=== PATIENT | female | born 1935 | race Caucasian/White ===

== ENCOUNTER → 2017-12-20 | Outpatient (CLI) | payer OTHER | END | disposition home or self-care (01) | LOC: C.LABMFLN 10:59 | PROVIDERS: ATTEND Family Medicine | DX: R30.0 Dysuria (principal) ==

== ENCOUNTER → 2018-01-01 | Outpatient (CLI) | payer OTHER | END | disposition home or self-care (01) | LOC: C.LABMFLN 09:56 | PROVIDERS: ATTEND Family Medicine | DX: N30.00 Acute cystitis without hematuria (principal) ==

== ENCOUNTER 2019-10-20 17:26 | Observation (INO) ==
[2019-10-20] MEDS ORDERED: SODIUM CHLORIDE 0.9% 500 ML IV ONE (17:48)
--- NOTE | 2019-10-20 18:15 | Emergency Department Note ---
Entered by Gregorio Diaz acting as a scribe for Kei Mejia MD History of Present Illness General Chief complaint: Urinary Symptoms Stated complaint: UTI Time Seen by Provider: 10/20/19 17:38 Source: patient and family (daughter) Limitations: no limitations History of Present Illness Onset (ago): day(s) (couple days) Location: head Severity: similar to prior episodes Pain Consistency: + constant Quality: + constant Associated symptoms: + other (not keeping up with fluids, multiple falls); no confusion and no nausea/vomiting Treatments prior to arrival: other (bactrim) The patient is a 84 year old female who presents to the Emergency Room with complaints of constant weakness starting a few days ago. The patient's daughter states the patient's PCP, Dr. Saavedra, told them to go to the ED yesterday because her symptoms sounded like she had a UTI. The daughter states the patient was diagnosed with a UTI yesterday and was put on Bactrim. The daughter states the patient's gait is off and she fell 3 times today. The daughter states the patient has a lump on her back. The daughter states the patient did not hit her head. The daughter states the patient takes Eliquis. The patient denies having nausea and vomiting. The daughter denies the patient having confusion. The daughter states the patient has a history of aspiration. The daughter states the patient has not been keeping up with her fluids. The daughter states the patient needs assistance at home with dressing and bathing. Home Medications Home Medications Medication Instructions Recorded Confirmed Type apixaban 2.5 mg tablet 2.5 mg PO BID #180 tab 03/26/19 10/20/19 Rx calcium carbonate 600 mg (1,500 1 cap PO DAILY #90 cap 04/08/19 10/20/19 Rx mg)-vitamin D3 500 unit capsule cholecalciferol (vitamin D3) 50 2,000 units PO DAILY #90 tab 04/08/19 10/20/19 Rx mcg (2,000 unit) tablet cyanocobalamin (vitamin B-12) 1,000 mcg PO DAILY #90 tab 04/08/19 10/20/19 Rx 1,000 mcg tablet metoprolol tartrate 25 mg tablet 12.5 mg PO BID #90 tab 04/08/19 10/20/19 Rx cranberry 500 mg PO DAILY 10/20/19 10/20/19 History lisinopril 5 mg PO DAILY 10/20/19 10/20/19 History sulfamethoxazole-trimethoprim 1 tab PO BID 10/20/19 10/20/19 History [Bactrim DS] tramadol-acetaminophen 2 tab PO BID PRN 10/20/19 10/20/19 History Allergies Allergy/AdvReac Type Severity Reaction Status Date / Time antivenin,crotalidae Allergy Severe TONGUE Verified 10/20/19 18:02 polyvalent imm SWELLS aspirin Allergy Unknown CAN'T Verified 10/20/19 18:02 REMEMBER atorvastatin Allergy Unknown CAN'T Verified 10/20/19 18:02 REMEMBER ciprofloxacin [From Cipro] Allergy Unknown CAN'T Verified 10/20/19 18:02 REMEMBER ibandronate sodium Allergy Unknown CAN'T Verified 10/20/19 18:02 REMEMBER Sulfa (Sulfonamide Allergy Unknown CAN'T Verified 10/20/19 18:02 Antibiotics) REMEMBER Past Med/Surg History Medical History Cataract Chronic anticoagulation (Chronic) 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) Gait instability (Chronic) HTN, goal below 150/90 (Chronic) Insomnia (Chronic) Medicare annual wellness visit, initial (Acute) Osteoporosis (Chronic) Pulmonary embolism (Resolved) Recurrent falls (Chronic) Urge and stress incontinence (Suspected) UTI due to extended-spectrum beta lactamase (ESBL) producing Escherichia coli (Acute) Vitamin D deficiency (Chronic) Family History Mother Colorectal cancer Father Heart disease Stroke Hypertension Grandmother (Maternal) Diabetes Social History Preferred Language: Mongolian Communication Ability: Effective Visual Impairment: Diminished Hearing Ability: Normal Beliefs That Will Affect Care: Episcopal marital status: / marital status details: 2015 Current Living Situation: Other Current Living Situation Comment: lives with her daughter current occupational status: retired current occupation: seamstress Feels Safe at Home: Yes Smoking Status: Never smoker Hx Alcohol Use: No caffeine: Yes during the past year weight has: remained stable Dental Care, Regularly: Yes Physical Activity Frequency: 5-6 Times per Week Physical Activity Frequency Comment: With daughter core strengthening Seatbelt Use: always Sunscreen Use: No Review of Systems See HPI for pertinent positives & negatives. and A total of 10 systems reviewed and were otherwise negative Physical Exam Vital Signs Vital Signs - 24 hr 10/20/19 17:29 10/20/19 18:16 10/20/19 19:23 Temperature 36.5 C Temperature Source Oral Pulse Rate 63 58 L Pulse Rate [Apical] 60 Pulse Rate from SpO2 Sensor 58 L Respiratory Rate 20 20 18 Respiratory Effort / Characteristics Non-Labored Spontaneous Respiratory Depth Normal Blood Pressure 167/89 H 179/100 H Blood Pressure [Left Arm] 176/83 H Blood Pressure Mean 115 114 Blood Pressure Mean [Left Arm] 114 Pulse Oximetry 93 94 95 Oxygen Delivery Method Room Air Room Air Sepsis Recent Fever Within 48 Hours No Sepsis Action Taken by Nursing No Action Required 10/20/19 19:31 10/20/19 20:31 10/20/19 21:01 Temperature Temperature Source Pulse Rate 58 L 58 L 59 L Pulse Rate [Apical] Pulse Rate from SpO2 Sensor 58 L 58 L Respiratory Rate 21 21 20 Respiratory Effort / Characteristics Respiratory Depth Blood Pressure 199/74 H 175/79 H 185/85 H Blood Pressure [Left Arm] Blood Pressure Mean 139 123 115 Blood Pressure Mean [Left Arm] Pulse Oximetry 96 93 Oxygen Delivery Method Sepsis Recent Fever Within 48 Hours Sepsis Action Taken by Nursing 10/20/19 21:31 10/20/19 22:01 Temperature Temperature Source Pulse Rate 61 61 Pulse Rate [Apical] Pulse Rate from SpO2 Sensor Respiratory Rate 20 20 Respiratory Effort / Characteristics Respiratory Depth Blood Pressure 196/91 H 180/82 H Blood Pressure [Left Arm] Blood Pressure Mean 104 115 Blood Pressure Mean [Left Arm] Pulse Oximetry Oxygen Delivery Method Sepsis Recent Fever Within 48 Hours Sepsis Action Taken by Nursing General: Non-ill appearing older female in no acute distress. HEENT: Normal cephalic atraumatic. Pupils are equal round and reactive to light. Extraocular movements are intact. Oropharynx is pink with moist mucous membranes. No swelling of the mouth lips or tongue. Neck: Supple with a midline trachea. No meningeal signs or stiffness, no JVD or bruits. No Stridor. Chest: Clear to auscultation bilaterally. No wheezes or rhonchi. No increased work of breathing. Heart: regular rate and rhythm. Abdomen: Soft nontender, nondistended without rebound guarding or rigidity. Extremities: No cyanosis clubbing or edema. No calf tenderness or asymmetry Spine/Back. Non tender to palpation. No CVA tenderness. Moderate hematoma in the lower sacral area with a small abrasion. No active bleeding. Skin: Good turgor without rashes. Neurologic exam: Cranial nerves two through 12 are intact. Motor and sensation are intact and symmetrical throughout. Course Course 1737: The patient was evaluated in room C1B, and a complete history and physical examination were performed. 1825: I reevaluated the patient. She is finishing up her blood work. 1914: The patient is getting a catheter. 2023: I updated the patient on her labs and imaging. I recommended hospitalization, and she agrees with the plan. 2043: I discussed the patient's case with Dr. Ruiz - [facility]. He will evaluate the patient for further management. Administered Medications Discontinued Medications Sodium Chloride (Nss) 500 mls @ 999 mls/hr IV .Q31M ONE Stop: 10/20/19 18:18 Last Infusion: 10/20/19 19:37 Dose: 0 mls/hr Documented by: [id number] Admin: 10/20/19 18:18 Dose: 999 mls/hr Documented by: [id number] Ertapenem (Invanz) 10 mls @ 2 mls/min IV NOW STA Stop: 10/20/19 20:57 Last Admin: 10/20/19 21:46 Dose: 2 mls/min Documented by: [id number] Medical Decision Making Differential Diagnosis Differential Diagnosis includes but is not limited to weakness, sepsis, UTI, trauma, and electrolyte or metabolic abnormality. Medical Records Attestation: I reviewed the patient's medical records. Home Medications Current Medication List: was personally reviewed by me Laboratory Data Attestation: I reviewed the patient's lab results. Result diagrams: 10/20/19 18:01 10/20/19 18:01 Lab Results 10/20/19 10/20/19 10/20/19 Range/Units 18:01 18: 18: WBC 7.97 (4.8-10.8) K/uL RBC 4.56 (4.2-5.4) M/uL Hgb 13.6 (12.0-16.0) g/dL Hct 41.0 (37-47) % MCV 89.9 (80-100) fL MCH 29.8 (25-34) pg MCHC 33.2 (32-36) g/dL RDW Std Deviation 45.1 (36.4-46.3) fL RDW Coeff of Marimar 13.8 (11.5-14.5) % Plt Count 249 (130-400) K/uL MPV 9.3 (7.4-10.4) fL Immature Gran % (Auto) 0.3 % Neut % (Auto) 59.4 % Lymph % (Auto) 33.2 % [place] % (Auto) 5.9 % Eos % (Auto) 1.1 % Baso % (Auto) 0.1 % Immature Gran # (Auto) 0.02 (0.00-0.02) K/uL Neut # (Auto) 4.73 (1.4-6.5) K/uL Lymph # (Auto) 2.65 (1.2-3.4) K/uL [place] # (Auto) 0.47 (0.11-0.59) K/uL Eos # (Auto) 0.09 (0-0.5) K/uL Baso # (Auto) 0.01 (0-0.2) K/uL PT 11.1 (9.0-12.0) Seconds INR 1.1 (0.9-1.1) APTT 28.2 (21.0-31.0) Seconds PTT Ratio 1.0 Sodium 138 (136-145) mmol/L Potassium 4.4 (3.5-5.1) mmol/L Chloride 105 (98-107) mmol/L Carbon Dioxide 27 (21-32) mmol/L Anion Gap 6.0 (3-11) BUN 18 (7-18) mg/dl Creatinine 1.03 (0.6-1.2) mg/dl Est Cr Clr Drug Dosing Not Reportable Est GFR ( Amer) 57.8 Est GFR (Non-Af Amer) 49.9 BUN/Creatinine Ratio 17.8 (10-20) Glucose 100 H (70-99) mg/dl Lactate (0.4-2.0) mmol/L Calcium 9.2 (8.5-10.1) mg/dl Magnesium 2.3 (1.8-2.4) mg/dl Total Bilirubin 0.3 (0.2-1) mg/dl AST 12 L (15-37) U/L ALT 13 (12-78) U/L Alkaline Phosphatase 80 (45-117) U/L Total Protein 7.7 (6.4-8.2) gm/dl Albumin 3.7 (3.4-5.0) gm/dl Globulin 4.0 (2.5-4.0) gm/dl Albumin/Globulin Ratio 0.9 (0.9-2) Urine Color Urine Appearance (Clear) Urine pH (4.5-7.5) Ur Specific Brenham (1.000-1.030) Urine Protein (Negative) Urine Glucose (UA) (Negative) Urine Ketones (Negative) Urine Blood (Negative) Urine Nitrite (Negative) Urine Bilirubin (Negative) Urine Urobilinogen (Negative) Ur Leukocyte Esterase (Negative) 10/20/19 10/20/19 Range/Units 18:01 19:21 WBC (4.8-10.8) K/uL RBC (4.2-5.4) M/uL Hgb (12.0-16.0) g/dL Hct (37-47) % MCV (80-100) fL MCH (25-34) pg MCHC (32-36) g/dL RDW Std Deviation (36.4-46.3) fL RDW Coeff of Marimar (11.5-14.5) % Plt Count (130-400) K/uL MPV (7.4-10.4) fL Immature Gran % (Auto) % Neut % (Auto) % Lymph % (Auto) % [place] % (Auto) % Eos % (Auto) % Baso % (Auto) % Immature Gran # (Auto) (0.00-0.02) K/uL Neut # (Auto) (1.4-6.5) K/uL Lymph # (Auto) (1.2-3.4) K/uL [place] # (Auto) (0.11-0.59) K/uL Eos # (Auto) (0-0.5) K/uL Baso # (Auto) (0-0.2) K/uL PT (9.0-12.0) Seconds INR (0.9-1.1) APTT (21.0-31.0) Seconds PTT Ratio Sodium (136-145) mmol/L Potassium (3.5-5.1) mmol/L Chloride (98-107) mmol/L Carbon Dioxide (21-32) mmol/L Anion Gap (3-11) BUN (7-18) mg/dl Creatinine (0.6-1.2) mg/dl Est Cr Clr Drug Dosing Est GFR ( Amer) Est GFR (Non-Af Amer) BUN/Creatinine Ratio (10-20) Glucose (70-99) mg/dl Lactate 2.0 (0.4-2.0) mmol/L Calcium (8.5-10.1) mg/dl Magnesium (1.8-2.4) mg/dl Total Bilirubin (0.2-1) mg/dl AST (15-37) U/L ALT (12-78) U/L Alkaline Phosphatase (45-117) U/L Total Protein (6.4-8.2) gm/dl Albumin (3.4-5.0) gm/dl Globulin (2.5-4.0) gm/dl Albumin/Globulin Ratio (0.9-2) Urine Color Yellow Urine Appearance Clear (Clear) Urine pH 6.5 (4.5-7.5) Ur Specific Brenham 1.015 (1.000-1.030) Urine Protein Negative (Negative) Urine Glucose (UA) Negative (Negative) Urine Ketones Negative (Negative) Urine Blood Negative (Negative) Urine Nitrite Negative (Negative) Urine Bilirubin Negative (Negative) Urine Urobilinogen Negative (Negative) Ur Leukocyte Esterase Negative (Negative) Imaging Data Radiologist's Impression: Radiology results as stated below per my review and the radiologist's interpretation: XR chest 1V portable HISTORY: SEPSIS COMPARISON: Chest 09/10/2019. FINDINGS: The lungs are clear. Cardiac silhouette is normal in size. No pleural effusions. No pneumothorax. IMPRESSION: No acute process. ACT 112: Negative or not required by law. Electronically signed by: Wayne Torres M.D. 10/20/2019 7:58 PM [address] AND PELVIS CT WITHOUT CONTRAST CT DOSE: 1166.72 mGy.cm HISTORY: fall, sacral injury on Eliquis TECHNIQUE: Multiaxial CT images of the abdomen and pelvis were performed without contrast. A dose lowering technique was utilized adhering to the principles of ALARA. COMPARISON STUDY: None. FINDINGS: A few bibasilar linear densities consistent with subsegmental atelectasis. There are calcified granuloma seen within the left lower lobe. No pneumoperitoneum. No pneumatosis. A few scattered punctate calcified granuloma seen within the liver and spleen. The unenhanced gallbladder, pancreas, adrenal glands, and kidneys are unremarkable. Presacral soft tissues are intact. Subcutaneous hematoma posterior to the sacrum. This measures 7.6 cm in length and 3.2 x 1.4 cm in thickness. Calcified plaque within the normal caliber abdominal aorta. Punctate focus of gas within the bladder lumen. There is mild bladder wall thickening. The bilateral adnexa are unremarkable. 1 cm calcification at the uterine fundus favors a fibroid. Colonic diverticulosis. No evidence for diverticulitis. No bowel wall thickening or obstruction. IMPRESSION: A A 7.6 x 3.2 x 1.4 cm subcutaneous hematoma posterior to the sacrum. 2. No sacral fractures identified. 3. Mild bladder wall thickening containing a punctate focus of gas. This could be due to recent catheterization or possibly a cystitis. ACT 112: Negative or not required by law. Electronically signed by: Wayne Torres M.D. 10/20/2019 7:[address] CT DOSE: HISTORY: fall, weakness TECHNIQUE: Multiaxial CT images of the head were performed without the use of intravenous contrast. Automated exposure control was utilized for this study. A dose lowering technique was utilized adhering to the principles of ALARA. Comparison: None. Findings: The paranasal sinuses and mastoid air cells are clear. The calvarium and skull base are intact. There is no mass, hematoma, midline shift, acute infarct. White matter hypodensity is nonspecific but suggestive of microvascular ischemic change. The ventricles and sulci demonstrate mild age-related involutional changes. 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 Impression: No acute intracranial abnormality. ACT 112: Negative or not required by law. Electronically signed by: Wayne Torres M.D. 10/20/2019 7:42 PM ECG Data Attestation: I personally reviewed and interpreted this ECG as follows: Indication: + weakness Rate (beats per minute): 57 Rhythm: + sinus bradycardia ECG Intervals/blocks: + Normal QT ECG ST segments: no ST depression and no ST elevation Comparison ECG Date: no prior available Blood Pressure Blood Pressure Findings: Elevated blood pressure Blood Pressure Disposition: further management by hospitalist MDM Narrative This patient comes in as described above. She was placed in room C1. She is brought in by her daughter after she has had frequent falls. She landed on her buttocks and has a hematoma there. She is on Eliquis. She did not think she hit her head. She was seen in [place] yesterday and started on Bactrim apparently for a UTI. I did look at her records from yesterday and her prelim urine culture from a cath specimen shows greater than 100,000 and gram-negative rods that are non-Lactose fermenting. She also had greater than 1000 gram- positive cocci. According to the [place] ED note, she had a culture done back in December which had E. coli which showed sensitivity to Macrobid and Bactrim. When I look at her cultures here, the last 2 urine cultures were ESBL with multiple resistances. Given her symptoms, I did do a full sepsis work-up as well as a did a CAT scan of her head and abdomen/pelvis for trauma and weakness. She was ordered an IV fluid bolus. She was reassessed frequently. Cultures were obtained of the blood and urine. CAT scan of her head was negative. CAT scan of her pelvis shows a sacral hematoma without fracture. She has no significant white count or fever and does not have an elevated lactic acid however she is weak and has a documented UTI from yesterday with a history of ESBL. I did discuss case Dr. Sahni and ordered ertapenem 1 g IV which covered her last couple cultures here with ESBL. She will be admitted/observed for further elbert atment and evaluation. Impression & Plan Weakness, Frequent falls, UTI (urinary tract infection), prison (current) use of anticoagulants, Contusion of sacrum Discharge Plan Visit Data Chief Complaint: Urinary Symptoms Stated Complaint: UTI ED Provider: Kei Mejia Discharge Problem: Weakness, Frequent falls, UTI (urinary tract infection), intermediate teacher (current) use of anticoagulants, Contusion of sacrum Patient Disposition: Being Evaluated by Hospitalist Discharge Instructions Interventions: ED Discharge Assessment Last Done: 10/20/19 22:16 Forms Stand Alone Forms: [facility] [employer] Prescriptions Prescriptions: No Action Eliquis 2.5 mg tablet 2.5 mg PO BID Qty: 180 RF: 3 calcium carbonate-vitamin D3 [Calcium 600 with Vitamin D3] 600 mg(1,500mg) - 500 unit capsule 1 cap PO DAILY Qty: 90 RF: 3 cholecalciferol (vitamin D3) 2,000 unit tablet 2,000 units PO DAILY Qty: 90 RF: 3 cyanocobalamin (vitamin B-12) 1,000 mcg tablet 1,000 mcg PO DAILY Qty: 90 RF: 3 metoprolol tartrate 25 mg tablet 12.5 mg PO BID Qty: 90 RF: 3 sulfamethoxazole-trimethoprim [Bactrim DS] 800-160 mg Tablet 1 tab PO BID RF: 0 cranberry 500 mg Capsule 500 mg PO DAILY RF: 0 tramadol-acetaminophen 37.5-325 mg tablet 2 tab PO BID PRN (Reason: Pain) RF: 0 lisinopril 5 mg tablet 5 mg PO DAILY RF: 0 Referrals Referrals: Red Saavedra MD [Primary Care Provider] - Discharge Problem: UTI (urinary tract infection) Qualifiers: Urinary tract infection type: site unspecified Hematuria presence: without hematuria Qualified Code(s): N39.0 - Urinary tract infection, site not specified Contusion of sacrum Qualifiers: Encounter type: initial encounter Qualified Code(s): S30.0XXA - Contusion of lower back and pelvis, initial encounter The scribe's documentation has been prepared under my direction and personally reviewed by me in its entirety. I confirm that the note above accurately reflects all work, treatment, procedures, and medical decision making performed by me.
[2019-10-20 18:24] LABS: Basophils # (auto) 0.01 K/uL (0-0.2); Basophils % (auto) 0.1 %; Eosinophils # (auto) 0.09 K/uL (0-0.5); Eosinophils % (auto) 1.1 %; Hemoglobin 13.6 g/dL (12.0-16.0); Immature Granulocytes # (auto) 0.02 K/uL (0.00-0.02); Immature Granulocytes % (auto) 0.3 %; Lymphocytes # (auto) 2.65 K/uL (1.2-3.4); Lymphocytes % (auto) 33.2 %; Mean Corpuscular Hemoglobin 29.8 pg (25-34); Mean Corpuscular Hgb Conc 33.2 g/dL (32-36); Mean Corpuscular Volume 89.9 fL (80-100); Mean Platelet Volume 9.3 fL (7.4-10.4); Monocytes # (auto) 0.47 K/uL (0.11-0.59); Monocytes % (auto) 5.9 %; Neutrophils # (auto) 4.73 K/uL (1.4-6.5); Neutrophils % (auto) 59.4 %; Platelet Count 249 K/uL (130-400); RDW Coefficient of Variation 13.8 % (11.5-14.5); RDW Standard Deviation 45.1 fL (36.4-46.3); Red Blood Count 4.56 M/uL (4.2-5.4); White Blood Count 7.97 K/uL (4.8-10.8)
[2019-10-20 18:36] LABS: INR 1.1 (0.9-1.1); Partial Thromboplastin Time 28.2 Seconds (21.0-31.0); Prothrombin Time 11.1 Seconds (9.0-12.0)
[2019-10-20 18:41] LABS: Alanine Aminotransferase 13 U/L (12-78); Albumin Level 3.7 gm/dl (3.4-5.0); Aspartate Aminotransferase 12 U/L (15-37); BUN Creatinine Ratio 17.8 (10-20); Blood Urea Nitrogen 18 mg/dl (7-18); Calcium 9.2 mg/dl (8.5-10.1); Carbon Dioxide 27 mmol/L (21-32); Chloride 105 mmol/L (98-107); Est GFR (African American) 57.8; Est GFR (Non-African American) 49.9; Glucose 100 mg/dl (70-99); Magnesium 2.3 mg/dl (1.8-2.4); Potassium 4.4 mmol/L (3.5-5.1); Sodium 138 mmol/L (136-145)
[2019-10-20 18:44] LABS: Albumin Globulin Ratio 0.9 (0.9-2); Alkaline Phosphatase 80 U/L (45-117); Bilirubin,Total 0.3 mg/dl (0.2-1); Total Protein 7.7 gm/dl (6.4-8.2)
--- NOTE | 2019-10-20 19:31 | CT Scan Report ---
ABDOMEN AND PELVIS CT WITHOUT CONTRAST CT DOSE: 1166.72 mGy.cm HISTORY: fall, sacral injury on Eliquis TECHNIQUE: Multiaxial CT images of the abdomen and pelvis were performed without contrast. A dose lo wering technique was utilized adhering to the principles of ALARA. COMPARISON STUDY: None. FINDINGS: A few bibasilar linear densities consistent with subsegmental atelectasis. There are calcif ied granuloma seen within the left lower lobe. No pneumoperitoneum. No pneumatosis. A few scattered p unctate calcified granuloma seen within the liver and spleen. The unenhanced gallbladder, pancreas, a drenal glands, and kidneys are unremarkable. Presacral soft tissues are intact. Subcutaneous hematoma posterior to the sacrum. This measures 7.6 cm in length and 3.2 x 1.4 cm in thickness. Calcified rossi que within the normal caliber abdominal aorta. Punctate focus of gas within the bladder lumen. There is mild bladder wall thickening. The bilateral adnexa are unremarkable. 1 cm calcification at the chitimacha rine fundus favors a fibroid. Colonic diverticulosis. No evidence for diverticulitis. No bowel wall t hickening or obstruction. IMPRESSION: A A 7.6 x 3.2 x 1.4 cm subcutaneous hematoma posterior to the sacrum. 2. No sacral fractures identified. 3. Mild bladder wall thickening containing a punctate focus of gas. This could be due to recent gregg terization or possibly a cystitis. ACT 112: Negative or not required by law. Electronically signed by: Wayne Torres M.D. 10/20/2019 7:29 PM
[2019-10-20 19:32] LABS: Appearance Urine Clear (Clear); Bilirubin Urine Negative (Negative); Blood Urine Negative (Negative); Color Urine Yellow; Glucose Urine UA Negative (Negative); Ketones Urine Negative (Negative); Leukocyte Esterase Urine Negative (Negative); Nitrite Urine Negative (Negative); Protein Urine Negative (Negative); Specific Gravity Urine 1.015 (1.000-1.030); Urobilinogen Urine Negative (Negative); pH Urine 6.5 (4.5-7.5)
--- NOTE | 2019-10-20 19:44 | CT Scan Report ---
HEAD CT NONCONTRAST CT DOSE: HISTORY: fall, weakness TECHNIQUE: Multiaxial CT images of the head were performed without the use of intravenous contrast. A utomated exposure control was utilized for this study. A dose lowering technique was utilized adheri ng to the principles of ALARA. Comparison: None. Findings: The paranasal sinuses and mastoid air cells are clear. The calvarium and skull base are int act. There is no mass, hematoma, midline shift, acute infarct. White matter hypodensity is nonspecifi c but suggestive of microvascular ischemic change. The ventricles and sulci demonstrate mild age-rela selam involutional changes. 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 Impression: No acute intracranial abnormality. ACT 112: Negative or not required by law. Electronically signed by: Wayne Torres M.D. 10/20/2019 7:42 PM
--- NOTE | 2019-10-20 19:59 | XRay Report ---
XR chest 1V portable HISTORY: SEPSIS COMPARISON: Chest 09/10/2019. FINDINGS: The lungs are clear. Cardiac silhouette is normal in size. No pleural effusions. No pneumot horax. IMPRESSION: No acute process. ACT 112: Negative or not required by law. Electronically signed by: Wayne Torres M.D. 10/20/2019 7:58 PM
[2019-10-20] MEDS ORDERED: ERTAPENEM SODIUM 10 ML IV STA (20:53)
--- NOTE | 2019-10-20 22:15 | History & Physical Report ---
Date of Service October 20, 2019 Assessment & Plan (1) Weakness: Progressive weakness, gait instability and frequent falls- The patient presents to the emergency department with persistent weakness, and increased frequency of falls that occurred prior to arrival. Likely being aggravated by weakness and encephalopathy associated with urinary tract infection Patient will need to have a PT assessment prior to discharge. Present on Admission?: Yes (2) Frequent falls: See above Present on Admission?: Yes (3) Gait instability: See above Present on Admission?: Yes (4) UTI due to extended-spectrum beta lactamase (ESBL) producing Escherichia coli: Will place patient on ertapenem 1 g IV daily, to cover potential resistant organism. Follow urine culture and sensitivity. NSS at 60 mils per hour. Present on Admission?: Yes (5) Pulmonary embolism: Hold apixaban for 24 hours, due to contusion on lower back due to fall. If satisfactory tomorrow, can resume apixaban at that time. Present on Admission?: Yes (6) Contusion of sacrum: Holding apixaban for 24 hours as noted, and reassess in the a.m. 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 twice daily, and lisinopril 5 mg p.o. daily with hold parameters. Present on Admission?: Yes (9) Urge and stress incontinence: Predisposing patient to recurrent urinary tract infection Present on Admission?: Yes History of Present Illness Chief Complaint: The patient presents to the emergency department with progressive generalized weakness that began a few days ago. Primary Care Provider: Red Saavedra MD The patient is an 84-year-old female with past medical history including aspiration, femoral hernia, lumbar disc disease, first-degree AV block, gait instability, hypertension, insomnia, osteoporosis, pulmonary embolism, recurrent falls, ESBL UTI, urge and stress incontinence, and vitamin D deficiency. She presents to the emergency department with progressive generalized weakness that began a few days ago. She was seen at this emergency department yesterday after getting instructions from her PCP Dr. Saavedra to do so, and was started on Bactrim for UTI. Her daughter has brought her back to the ED tonight, due to the patient falling 3 times today, and reports a lump on her back. The patient is on Eliquis for pulmonary emboli Allergies Allergy/AdvReac Type Severity Reaction Status Date / Time antivenin,crotalidae Allergy Severe TONGUE Verified 10/20/19 18:02 polyvalent imm SWELLS aspirin Allergy Unknown CAN'T Verified 10/20/19 18:02 REMEMBER atorvastatin Allergy Unknown CAN'T Verified 10/20/19 18:02 REMEMBER ciprofloxacin [From Cipro] Allergy Unknown CAN'T Verified 10/20/19 18:02 REMEMBER ibandronate sodium Allergy Unknown CAN'T Verified 10/20/19 18:02 REMEMBER Sulfa (Sulfonamide Allergy Unknown CAN'T Verified 10/20/19 18:02 Antibiotics) REMEMBER Home Medications Home Medications Medication Instructions Recorded Confirmed Type apixaban 2.5 mg tablet 2.5 mg PO BID #180 tab 03/26/19 10/20/19 Rx calcium carbonate 600 mg (1,500 1 cap PO DAILY #90 cap 04/08/19 10/20/19 Rx mg)-vitamin D3 500 unit capsule cholecalciferol (vitamin D3) 50 2,000 units PO DAILY #90 tab 04/08/19 10/20/19 Rx mcg (2,000 unit) tablet cyanocobalamin (vitamin B-12) 1,000 mcg PO DAILY #90 tab 04/08/19 10/20/19 Rx 1,000 mcg tablet metoprolol tartrate 25 mg tablet 12.5 mg PO BID #90 tab 04/08/19 10/20/19 Rx cranberry 500 mg PO DAILY 10/20/19 10/20/19 History lisinopril 5 mg PO DAILY 10/20/19 10/20/19 History sulfamethoxazole-trimethoprim 1 tab PO BID 10/20/19 10/20/19 History [Bactrim DS] tramadol-acetaminophen 2 tab PO BID PRN 10/20/19 10/20/19 History Past Med/Surg History Medical History Cataract Chronic anticoagulation (Chronic) 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) Gait instability (Chronic) HTN, goal below 150/90 (Chronic) Insomnia (Chronic) Medicare annual wellness visit, initial (Acute) Osteoporosis (Chronic) Pulmonary embolism (Resolved) Recurrent falls (Chronic) Urge and stress incontinence (Suspected) UTI due to extended-spectrum beta lactamase (ESBL) producing Escherichia coli (Acute) Vitamin D deficiency (Chronic) Family History Mother Colorectal cancer Father Heart disease Stroke Hypertension Grandmother (Maternal) Diabetes Social History Preferred Language: Cymro Communication Ability: Impaired Communication Ability Comment: dementia Visual Impairment: Diminished Hearing Ability: Normal Community Affairs Manager Required: No Beliefs That Will Affect Care: None marital status: / marital status details: 2014 Current Living Situation: Family Current Living Situation Comment: lives with her daughter current occupational status: retired current occupation: [employer] Other Information That Helps Us Care for You: No Feels Safe at Home: Yes Safety Concerns: Feels Safe At This Time Smoking Status: Never smoker Do You Dip or Chew Tobacco: No ; Second Hand Exposure: Yes ; Tobacco Cessation Education Requested by Patient: No Hx Alcohol Use: No Hx Substance Use: No caffeine: Yes during the past year weight has: remained stable Dental Care, Regularly: Yes Physical Activity Frequency: 5-6 Times per Week Physical Activity Frequency Comment: With daughter core strengthening Seatbelt Use: always Sunscreen Use: No Review of Systems Review of Systems: Unobtainable due to cognitive status Physical Exam Physical Exam: The patient is awake, tries to answer questions but is confused, normocephalic and atraumatic, lying in bed and in no acute distress. HEENT--PERRL, EOMI, mucous membranes and oropharynx dry. Neck--supple. No JVD. No bruits. Thyroid normal, trachea midline, no adenopathy. Heart--normal S1 and S2. No murmurs, rubs or gallops. Lungs--clear bilaterally, no respiratory distress, no accessory muscle use. Abdomen--normal bowel sounds and soft. Nontender. Nondistended. Extremities--no cyanosis or clubbing. No edema. There are good distal pulses b/l. Dermatologic--normal skin turgor, normal color, no abnormal lymph nodes, no rash. Neurologic--cranial nerves II through XII grossly intact. Rheumatologic--normal range of motion. Psychiatric--normal affect. Results & Data Vital Signs (Past 12 Hours) Vital Signs Temp Pulse Pulse Resp BP BP Pulse Ox 02/23/20 20:31 58 L 21 175/79 H 93 10/20/19 19:31 58 L 21 199/74 H 96 10/20/19 19:23 58 L 18 179/100 H 95 10/20/19 18:16 60 20 176/83 H 94 10/20/19 17:29 97.7 F 63 20 167/89 H 93 Laboratory Results Laboratory Results WBC 7.97 K/uL (4.8-10.8) 10/20/19 18: RBC 4.56 M/uL (4.2-5.4) 10/20/19 18:01 Hgb 13.6 g/dL (12.0-16.0) 10/20/19 18: Hct 41.0 % (37-47) 10/20/19 18: MCV 89.9 fL (80-100) 10/20/19 18: MCH 29.8 pg (25-34) 10/20/19 18: MCHC 33.2 g/dL (32-36) 10/20/19 18: RDW Std Deviation 45.1 fL (36.4-46.3) 10/20/19 18: RDW Coeff of Marimar 13.8 % (11.5-14.5) 10/20/19 18: Plt Count 249 K/uL (130-400) 10/20/19 18:01 MPV 9.3 fL (7.4-10.4) 10/20/19 18:01 Immature Gran % (Auto) 0.3 % 10/20/19 18:01 Neut % (Auto) 59.4 % 10/20/19 18: Lymph % (Auto) 33.2 % 10/20/19 18:01 Lander % (Auto) 5.9 % 10/20/19 18:01 Eos % (Auto) 1.1 % 10/20/19 18:01 Baso % (Auto) 0.1 % 10/20/19 18:01 Immature Gran # (Auto) 0.02 K/uL (0.00-0.02) 10/20/19 18:01 Neut # (Auto) 4.73 K/uL (1.4-6.5) 10/20/19 18:01 Lymph # (Auto) 2.65 K/uL (1.2-3.4) 10/20/19 18:01 Lander # (Auto) 0.47 K/uL (0.11-0.59) 10/20/19 18: Eos # (Auto) 0.09 K/uL (0-0.5) 10/20/19 18:01 Baso # (Auto) 0.01 K/uL (0-0.2) 10/20/19 18: PT 11.1 Seconds (9.0-12.0) 10/20/19 18: INR 1.1 (0.9-1.1) 10/20/19 18: APTT 28.2 Seconds (21.0-31.0) 10/20/19 18: PTT Ratio 1.0 10/20/19 18: Sodium 138 mmol/L (136-145) 10/20/19 18: Potassium 4.4 mmol/L (3.5-5.1) 10/20/19 18: Chloride 105 mmol/L (98-107) 10/20/19 18: Carbon Dioxide 27 mmol/L (21-32) 10/20/19 18: Anion Gap 6.0 (3-11) 10/20/19 18: BUN 18 mg/dl (7-18) 10/20/19 18: Creatinine 1.03 mg/dl (0.6-1.2) 10/20/19 18: Est Cr Clr Drug Dosing Not Reportable 10/20/19 18: Est GFR ( Amer) 57.8 10/20/19 18: Est GFR (Non-Af Amer) 49.9 10/20/19 18: BUN/Creatinine Ratio 17.8 (10-20) 10/20/19 18: Glucose 100 mg/dl (70-99) H 10/20/19 18: Lactate 2.0 mmol/L (0.4-2.0) 10/20/19 18: Calcium 9.2 mg/dl (8.5-10.1) 10/20/19 18: Magnesium 2.3 mg/dl (1.8-2.4) 10/20/19 18: Total Bilirubin 0.3 mg/dl (0.2-1) 10/20/19 18: AST 12 U/L (15-37) L 10/20/19 18:01 ALT 13 U/L (12-78) 10/20/19 18:01 Alkaline Phosphatase 80 U/L (45-117) 10/20/19 18:01 Total Protein 7.7 gm/dl (6.4-8.2) 10/20/19 18:01 Albumin 3.7 gm/dl (3.4-5.0) 10/20/19 18:01 Globulin 4.0 gm/dl (2.5-4.0) 10/20/19 18:01 Albumin/Globulin Ratio 0.9 (0.9-2) 10/20/19 18:01 Urine Color Yellow 10/20/19 19:21 Urine Appearance Clear (Clear) 10/20/19 19:21 Urine pH 6.5 (4.5-7.5) 10/20/19 19:21 Ur Specific Steele 1.015 (1.000-1.030) 10/20/19 19:21 Urine Protein Negative (Negative) 10/20/19 19:21 Urine Glucose (UA) Negative (Negative) 10/20/19 19:21 Urine Ketones Negative (Negative) 10/20/19 19:21 Urine Blood Negative (Negative) 10/20/19 19:21 Urine Nitrite Negative (Negative) 10/20/19 19:21 Urine Bilirubin Negative (Negative) 10/20/19 19:21 Urine Urobilinogen Negative (Negative) 10/20/19 19:21 Ur Leukocyte Esterase Negative (Negative) 10/20/19 19:21 Diagnostic Findings [place], [place] [phone] XRay Report Patient: JF GIBSON AAdmit Date: 10/20/19 MR#: [id number]: [address] Acct ID:[id number]: [facility] [place] [address] Age: 84Location: ED Sex: F Room/Bed: Att Phy:Diagnosis: UTI Lucy Phy: Red Saavedra, HARRYervice Date: 10/20/19 Fam Phy:Interpreting Phy: Wayne Torres MD Admit Phy: Ordering Phy: Kei Mejia M.D. cc: ~ XR chest 1V portable HISTORY: SEPSIS COMPARISON: Chest 09/10/2019. FINDINGS: The lungs are clear. Cardiac silhouette is normal in size. No pleural effusions. No pneumothorax. IMPRESSION: No acute process. ACT 112: Negative or not required by law. Electronically signed by: Wayne Torres M.D. 10/20/2019 7:58 PM Dictated: 10/20/191957 Transcribed: 10/20/191957 [place], [place] [phone] CT Scan Report Patient: JF GIBSON AAdmit Date: 10/20/19 MR#: [id number]: [address] Acct ID:[id number]: [facility] Zip[facility] [place] [address] Age: 84Location: ED Sex: F Room/Bed: Att Phy:Diagnosis: UTI Lucy Phy: Red Saavedra MDServcy Date: 10/20/19 Fam Phy:Interpreting Phy: Wayne Torres MD Admit Phy: Ordering Phy: Kei Mejia M.D. cc: ~ ABDOMEN AND PELVIS CT WITHOUT CONTRAST CT DOSE: 1166.72 mGy.cm HISTORY: fall, sacral injury on Eliquis TECHNIQUE: Multiaxial CT images of the abdomen and pelvis were performed without contrast. A dose lowering technique was utilized adhering to the principles of ALARA. COMPARISON STUDY: None. FINDINGS: A few bibasilar linear densities consistent with subsegmental atelectasis. There are calcified granuloma seen within the left lower lobe. No pneumoperitoneum. No pneumatosis. A few scattered punctate calcified granuloma seen within the liver and spleen. The unenhanced gallbladder, pancreas, adrenal glands, and kidneys are unremarkable. Presacral soft tissues are intact. Subcutaneous hematoma posterior to the sacrum. This measures 7.6 cm in length and 3.2 x 1.4 cm in thickness. Calcified plaque within the normal caliber abdominal aorta. Punctate focus of gas within the bladder lumen. There is mild bladder wall thickening. The bilateral adnexa are unremarkable. 1 cm calcification at the uterine fundus favors a fibroid. Colonic diverticulosis. No evidence for diverticulitis. No bowel wall thickening or obstruction. IMPRESSION: A A 7.6 x 3.2 x 1.4 cm subcutaneous hematoma posterior to the sacrum. 2. No sacral fractures identified. 3. Mild bladder wall thickening containing a punctate focus of gas. This could be due to recent catheterization or possibly a cystitis. ACT 112: Negative or not required by law. Electronically signed by: Wayen Torres M.D. 10/20/2019 7:29 PM Dictated: 10/20/191913 Transcribed: 10/20/191913 [place], [place] [phone] CT Scan Report Patient: JF GIBSON AAdmit Date: 10/20/19 MR#: [id number]: [address] Acct ID:[id number]: Date: [address] [place] [address] Zip: [place] [address] Age: 84Location: ED Sex: F Room/Bed: Att Phy:Diagnosis: UTI Lucy Phy: Red Saavedra, HARRYervice Date: 10/20/19 Fam Phy:Interpreting Phy: Wayne Torres MD Admit Phy: Ordering Phy: Kei Mejia M.D. cc: ~ HEAD CT NONCONTRAST CT DOSE: HISTORY: fall, weakness TECHNIQUE: Multiaxial CT images of the head were performed without the use of intravenous contrast. Automated exposure control was utilized for this study. A dose lowering technique was utilized adhering to the principles of ALARA. Comparison: None. Findings: The paranasal sinuses and mastoid air cells are clear. The calvarium and skull base are intact. There is no mass, hematoma, midline shift, acute infarct. White matter hypodensity is nonspecific but suggestive of microvascular ischemic change. The ventricles and sulci demonstrate mild age-related involutional changes. 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 Impression: No acute intracranial abnormality. ACT 112: Negative or not required by law. Electronically signed by: Wayne Torres M.D. 10/20/2019 7:42 PM Dictated: 10/20/191937 Transcribed: 10/20/191937 Code Status & VTE Plan Code Status Full code VTE Prophylaxis Plan VTE Prophylaxis will be ordered: Yes PG Care Time/CCT Total # of Minutes Spent Total Time Spent with Patient: Total time spent is greater than 50% in coordination of care (as documented) at patient's floor/unit and/or counseling patient: Coding Level of Care Code 04328 OBS Care - Level 3 Diagnoses Weakness R53.1 Frequent falls R29.6 Gait instability R26.81 UTI due to extended-spectrum beta lactamase (ESBL) producing Escherichia coli N39.0; B96.29; Z16.12 Pulmonary embolism I26.99 Contusion of sacrum S30.0XXA Encounter type: initial encounter [facility] (current) use of anticoagulants Z79.01 HTN, goal below 150/90 I10 Urge and stress incontinence N39.46 (1) Contusion of sacrum Encounter type: initial encounter Qualified Code(s): S30.0XXA - Contusion of lower back and pelvis, initial encounter
[2019-10-20] MEDS ORDERED: MAGNESIUM HYDROXIDE SUSP 30 ML UDC PO PRN (23:16)
[2019-10-20] MEDS ORDERED: ONDANSETRON INJ 2 MG/ML 2 ML VIAL IV PRN (23:16)
[2019-10-20] MEDS ORDERED: TRAMADOL/ACETAMINOPHEN 37.5/325MG TAB PO PRN (23:16)
[2019-10-20] MEDS ORDERED: ALUMINUM/MAGNESIUM SUSP 30 ML UDC PO PRN (23:16)
[2019-10-20] MEDS: PATIENT'S HEIGHT AND/OR WEIGHT NEEDED SCH (23:46)
[2019-10-20] MEDS: METOPROLOL TARTRATE 25 MG TAB PO SCH (23:55)
[2019-10-20] MEDS: NSS + 20MEQ KCL 20 MEQ/1,000 ML BAG IV SCH (23:56)
[2019-10-21] MEDS: PATIENT'S HEIGHT AND/OR WEIGHT NEEDED SCH ×4 (07:27→10:48)
[2019-10-21] MEDS: METOPROLOL TARTRATE 25 MG TAB PO SCH ×2 (07:53→22:04)
[2019-10-21] MEDS: CHOLECALCIFEROL 1,000 UNITS 25 MCG TAB PO SCH (07:53)
[2019-10-21] MEDS: lisinopriL 5 MG TAB PO SCH (07:53)
[2019-10-21] MEDS: CYANOCOBALAMIN 500 MCG TABLET (VITAMIN B-12) PO SCH (07:54)
[2019-10-21] MEDS: CALCIUM 600MG + VIT D 400 IU TAB PO SCH (07:54)
[2019-10-21] MEDS ORDERED: NON-FORMULARY MEDICATION (Cranberry 500 MG) PO SCH (09:00)
--- NOTE | 2019-10-21 10:19 | Electrocardiogram Report ---
Test Reason : Blood Pressure : / mmHG Vent. Rate : 057 BPM Atrial Rate : 057 BPM P-R Int : 208 ms QRS Dur : 088 ms QT Int : 426 ms P-R-T Axes : 000 -17 059 degrees QTc Int : 414 ms Poor data quality, interpretation may be adversely affected Sinus bradycardia Voltage criteria for left ventricular hypertrophy Abnormal ECG No previous ECGs available Confirmed by Daryl Rose ([id number]) on 10/21/2019 10:18:33 AM Referred By: REFERRED SELF Confirmed By:Teja Rose
[2019-10-21] MEDS: NSS + 20MEQ KCL 20 MEQ/1,000 ML BAG IV SCH (12:40)
--- NOTE | 2019-10-21 17:29 | Hospitalist Progress Note ---
Date of Service October 21, 2019 Assessment & Plan (1) Weakness: Progressive weakness, gait instability and frequent falls- The patient presents to the emergency department with persistent weakness, and increased frequency of falls that occurred prior to arrival. Likely being aggravated by weakness and encephalopathy associated with urinary tract infection Patient will need to have a PT assessment prior to discharge. 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 twice daily, and lisinopril 5 mg p.o. daily with hold parameters. (9) Urge and stress incontinence: Predisposing patient to recurrent urinary tract infection Admission and Anticipated Discharge Date Admission Date: October 20, 2019 Subjective Pt has no complaints except lower back pain at site of hematoma from fall. No chest pain or SOB, no abd pain, is eating her dinner when I saw her. No nausea Denies any urinary symptoms. Review of Systems Review of Systems: All systems reviewed & are unremarkable except as noted in HPI & below Physical Exam Constitutional: WD/WN, vitals as above Eyes: + anicteric sclerae ENMT: external ear and nose normal, oropharynx normal Neck: trachea midline, no thyromegaly Respiratory: normal respiratory effort, lungs clear to auscultation Cardiovascular: RRR, no murmur, no edema Chest (Breasts): Chest: normal inspection of chest Gastrointestinal (Abdomen): normal bowel sounds, soft, nontender, no hepatosplenomegaly Musculoskeletal: Spine: + sacral tenderness (with small hematoma, certainly not expanding) Extremities: extremities normal to inspection; no cyanosis and no clubbing Skin: no rashes, warm and dry Neurologic: moves all extremities and awake; no focal motor deficits Psychiatric: A+Ox3, euthymic affect Lymphatic: no lymphedema Results & Data ([facility]) Vital Signs (Past 12 Hours) Vital Signs Temp Pulse Resp BP Pulse Ox 10/21/19 15:33 37.0 C 70 20 133/71 95 10/21/19 07:32 36.6 C 57 L 16 176/70 H 92 Laboratory Results labs reviewed PG Care Time/CCT Total # of Minutes Spent Total Time Spent with Patient: Total time spent is greater than 50% in coordination of care (as documented) at patient's floor/unit and/or counseling patient: Coding Level of Care Code 90476 Subseq Hosp Care Lvl 2 Diagnoses Weakness R53.1 Frequent falls R29.6 Gait instability R26.81 UTI due to extended-spectrum beta lactamase (ESBL) producing Escherichia coli N39.0; B96.29; Z16.12 Pulmonary embolism I26.99 Contusion of sacrum S30.0XXA Encounter type: initial encounter [employer] (current) use of anticoagulants Z79.01 HTN, goal below 150/90 I10 Urge and stress incontinence N39.46 (1) Contusion of sacrum Encounter type: initial encounter Qualified Code(s): S30.0XXA - Contusion of lower back and pelvis, initial encounter
[2019-10-21] MEDS: APIXABAN 2.5 MG TAB PO SCH (21:54)
[2019-10-22] MEDS: NSS + 20MEQ KCL 20 MEQ/1,000 ML BAG IV SCH (00:16)
[2019-10-22] MEDS: CALCIUM 600MG + VIT D 400 IU TAB PO SCH (07:37)
[2019-10-22] MEDS: CYANOCOBALAMIN 500 MCG TABLET (VITAMIN B-12) PO SCH (07:37)
[2019-10-22] MEDS: METOPROLOL TARTRATE 25 MG TAB PO SCH (07:37)
[2019-10-22] MEDS: lisinopriL 5 MG TAB PO SCH (07:37)
[2019-10-22] MEDS: APIXABAN 2.5 MG TAB PO SCH (07:37)
[2019-10-22] MEDS: CHOLECALCIFEROL 1,000 UNITS 25 MCG TAB PO SCH (07:37)
[2019-10-22 08:05] LABS: Basophils # (auto) 0.02 K/uL (0-0.2); Basophils % (auto) 0.3 %; Eosinophils # (auto) 0.16 K/uL (0-0.5); Eosinophils % (auto) 2.7 %; Hematocrit (blood only) 36.8 % (37-47); Hemoglobin 12.1 g/dL (12.0-16.0); Lymphocytes # (auto) 1.51 K/uL (1.2-3.4); Lymphocytes % (auto) 25.8 %; Mean Corpuscular Hemoglobin 29.2 pg (25-34); Mean Corpuscular Hgb Conc 32.9 g/dL (32-36); Mean Corpuscular Volume 88.9 fL (80-100); Monocytes # (auto) 0.48 K/uL (0.11-0.59); Monocytes % (auto) 8.2 %; Neutrophils # (auto) 3.68 K/uL (1.4-6.5); Platelet Count 230 K/uL (130-400); RDW Coefficient of Variation 13.8 % (11.5-14.5); RDW Standard Deviation 45.5 fL (36.4-46.3); Red Blood Count 4.14 M/uL (4.2-5.4); White Blood Count 5.85 K/uL (4.8-10.8)
[2019-10-22 08:42] LABS: BUN Creatinine Ratio 11.2 (10-20); Creatinine Clr Calc Pharmacy 36.6 ml/min; Est GFR (African American) 64.6; Est GFR (Non-African American) 55.7; Potassium 4.4 mmol/L (3.5-5.1)
[2019-10-22] MEDS ORDERED: lisinopriL 5 MG TAB PO ONE (10:43)
[2019-10-22] MEDS ORDERED: ERTAPENEM SODIUM 1,000 MG in SODIUM CHLORIDE 0.9% 50 ML IV SCH (12:00)
--- NOTE | 2019-10-22 12:11 | Discharge Summary ---
Date of Service October 22, 2019 Admission HPI Per Admitting Provider The patient is an 84-year-old female with past medical history including aspiration, femoral hernia, lumbar disc disease, first-degree AV block, gait instability, hypertension, insomnia, osteoporosis, pulmonary embolism, recurrent falls, ESBL UTI, urge and stress incontinence, and vitamin D deficiency. She presents to the emergency department with progressive generalized weakness that began a few days ago. She was seen at this emergency department yesterday after getting instructions from her PCP Dr. Saavedra to do so, and was started on Bactrim for UTI. Her daughter has brought her back to the ED tonight, due to the patient falling 3 times today, and reports a lump on her back. The patient is on Eliquis for pulmonary emboli Principal Diagnosis UTI, Weakness, falls, sacral hematoma Discharge Exam Constitutional WD/WN, vitals as above Eyes + anicteric sclerae ENMT external ear and nose normal, oropharynx normal Neck trachea midline, no thyromegaly Respiratory normal respiratory effort, lungs clear to auscultation Cardiovascular RRR, no murmur, no edema Chest (Breasts) Chest: normal inspection of chest Gastrointestinal (Abdomen) normal bowel sounds, soft, nontender, no hepatosplenomegaly Musculoskeletal Spine: + sacral tenderness (with small hematoma, certainly not expanding) Extremities: extremities normal to inspection; no cyanosis and no clubbing Skin no rashes, warm and dry Neurologic moves all extremities and awake; no focal motor deficits Psychiatric A+Ox3, euthymic affect Lymphatic no lymphedema Discharge Data Allergies Allergy/AdvReac Type Severity Reaction Status Date / Time antivenin,crotalidae Allergy Severe TONGUE Verified 10/20/19 18:02 polyvalent imm SWELLS aspirin Allergy Unknown CAN'T Verified 10/20/19 18:02 REMEMBER atorvastatin Allergy Unknown CAN'T Verified 10/20/19 18:02 REMEMBER ciprofloxacin [From Cipro] Allergy Unknown CAN'T Verified 10/20/19 18:02 REMEMBER ibandronate sodium Allergy Unknown CAN'T Verified 10/20/19 18:02 REMEMBER Sulfa (Sulfonamide Allergy Unknown CAN'T Verified 10/20/19 18:02 Antibiotics) REMEMBER Consultations 10/20/19 20:43 ED Decision to Admit Stat 10/20/19 23:16 Consult Case Management - Discharge Planning Routine 10/21/19 17:21 Consult Health Information Management Stat Ordered Studies 10/20/19 17:49 CT abd pelvis wo con Stat CT head/brain wo con Stat CXR Hospital Course (1) UTI (urinary tract infection): Obtained urine culture result from Janet which shows E. coli resistant to Ampicillin bt otherwise pansensitive, Also with aerococcus urinae without sensitivities but typically responds well to PCN She received ertapenem 1 g IV daily x 2 doses -finish out Augmentin 875mg po bid x 8 more days on discharge (2) Weakness: Progressive weakness, gait instability and frequent falls- The patient presents to the emergency department with persistent weakness, and increased frequency of falls that occurred prior to arrival. Likely being aggravated by weakness and encephalopathy associated with urinary tract [id number] AAOx3 on day of discharge for mental status remains weak dc to rehab (3) Frequent falls: See above (4) Gait instability: See above (5) Pulmonary embolism: Hematoma does not seem to be expanding restarted Eliquis, hgb stable (6) Contusion of sacrum: held apixaban as above initially, then restarted (7) skilled nursing (current) use of anticoagulants: See above (8) HTN, goal below 150/90: BPs high -Continue metoprolol tartrate 12.5 mg p.o. twice daily, and increased lisinopril to 10 mg p.o. daily (9) Urge and stress incontinence: Predisposing patient to recurrent urinary tract infection Stable for dc to SNF today Total Time Total Time Spent Total Time Spent (In Minutes): 35 min Total Time Includes: Examination of the Patient, Discharge Planning and Medication Reconciliation Discharge Plan Discharge Items Patient Disposition: Transfer Custodial Fac Reason For Visit: MDR UTI Discharge Diagnosis: UTI Recurrent Falls Condition on Discharge: Fair Activity: As commented below Exercise/Sports: Gradually increase as tolerated Exercise Comment: with PT/OT Non-emergency contact: Primary Care Provider Call non-emergency contact if: you have any medication questions and your symptoms worsen Follow-up/Referrals: Red Saavedra MD [Primary Care Provider] - Diet: Heart Healthy Addtl Attending Provider Instructions: Please finish out the course of Augmentin for 8 more days for the UTI. Continue PT/OT for your history of weakness and falls. It is ok to take the Eliquis as your hematoma over the sacrum has remained small. Pending Studies at Discharge: Yes (Final Blood culture results) Stand-Alone Forms: My [facility] Skilled Items Patient informed of condition?: Yes DNR: No Discharge Level of Care: Skilled Communicable Disease: No Discharge Prognosis: Improving Lines: None Urinary Catheter: No Medications and DC Order Prescriptions: New lisinopril 10 mg Tablet 10 mg PO DAILY Qty: 30 RF: 0 amoxicillin-pot clavulanate [Augmentin] 875-125 mg tablet 1 tab PO BID Qty: 16 RF: 0 acetaminophen 325 mg tablet 325 mg PO Q6H PRN (Reason: pain) Qty: 30 RF: 0 Continued Eliquis 2.5 mg tablet 2.5 mg PO BID Qty: 180 RF: 3 calcium carbonate-vitamin D3 [Calcium 600 with Vitamin D3] 600 mg(1,500mg) - 500 unit capsule 1 cap PO DAILY Qty: 90 RF: 3 cholecalciferol (vitamin D3) 2,000 unit tablet 2,000 units PO DAILY Qty: 90 RF: 3 cyanocobalamin (vitamin B-12) 1,000 mcg tablet 1,000 mcg PO DAILY Qty: 90 RF: 3 metoprolol tartrate 25 mg tablet 12.5 mg PO BID Qty: 90 RF: 3 cranberry 500 mg Capsule 500 mg PO DAILY RF: 0 Discontinued sulfamethoxazole-trimethoprim [Bactrim DS] 800-160 mg Tablet 1 tab PO BID RF: 0 tramadol-acetaminophen 37.5-325 mg tablet 2 tab PO BID PRN (Reason: Pain) RF: 0 lisinopril 5 mg tablet 5 mg PO DAILY RF: 0 Discharge Orders: Discharge Order (Routine); Ordered 10/22/19 Ordered By: Leeanna Pantoja Admission Data Admit Date/Time: 10/20/19 21:03 Attending Provider: Leeanna Pantoja Admit Provider: Joao Ruiz Primary Care Provider: Red Saavedra Other Providers: Joao Ruiz Coding Level of Care Code 20711 OBS Care - Discharge Diagnoses UTI (urinary tract infection) N39.0 Weakness R53.1 Frequent falls R29.6 Gait instability R26.81 Pulmonary embolism I26.99 Contusion of sacrum S30.0XXA Encounter type: initial encounter skilled nursing (current) use of anticoagulants Z79.01 HTN, goal below 150/90 I10 Urge and stress incontinence N39.46
[2019-10-23] MEDS ORDERED: lisinopriL 10 MG TAB PO SCH (09:00)
== END 2019-10-22 13:34 ==
LOC: ED 17:26 → 4W 17:26 → SUATTDRO 21:03 → 4W 22:16